=== PATIENT | male | born 1950 | race Caucasian/White ===

== ENCOUNTER 2021-01-20 10:20 | Outpatient (CLI) | payer OTHER, SELFPAY ==
--- NOTE | ~2021-01-20 | MR_ITS ---
EXAMINATION: MR shoulder RT wo con DATE: 01/20/2021 11:26 INDICATION: Right shoulder pain. Unspecified rotator cuff tear or rupture. TECHNIQUE: Magnetic resonance imaging (MRI) of the right shoulder was performed without intravenous c ontrast. Sequences included axial PD-weighted FS FSE, coronal oblique PD-weighted FS FSE and T2-weigh jeffrey FS FSE, and sagittal oblique T2-weighted FS FSE and T1-weighted FSE. COMPARISON: None. FINDINGS: Coracoacromial arch: The acromion undersurface is curved in morphology (type II). 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 There is moderate subacromial/subdeltoid bursitis. Rotator cuff: There is an articular sided partial-thickness tear of supraspinatus and anterior infraspinatus tendon s measuring 12 mm anterior to posterior by 15 mm proximal to distal by 50% tendon thickness. Teres mi nor tendon is normal. There is mild subscapularis tendinopathy. There is mild fatty atrophy of infras pinatus muscle belly. There is increased T2-weighted signal intensity in the infraspinatus muscle bel ly. Biceps tendon and glenoid labrum: Biceps tendon is in bicipital groove. There is a near complete tear of proximal biceps tendon. There is a tear of glenoid labrum anterior and posterior to the biceps anchor (SLAP tear). Fluid: There is a small glenohumeral joint effusion. Bones/cartilage: There is shallow partial-thickness cartilage loss of glenoid and humeral head. IMPRESSION: 1. Articular-sided, partial-thickness tear of supraspinatus and infraspinatus tendons. 2. Increased signal in infraspinatus muscle belly, consistent with subacute denervation versus mild s train. Mild fatty atrophy of infraspinatus muscle belly. 3. Mild glenohumeral joint chondrosis. SLAP tear. 4. Near-complete tear of proximal biceps tendon. 5. Severe acromioclavicular joint osteoarthritis. 6. Small glenohumeral joint effusion. 7. Moderate subacromial/subdeltoid bursitis. Reviewed, dictated and finalized at location B. ING SHOW PRODUCER IMPRESSION: 1. Articular-sided, partial-thickness tear of supraspinatus and infraspinatus t endons. 2. Increased signal in infraspinatus muscle belly, consistent with subacute den ervation versus mild strain. Mild fatty atrophy of infraspinatus muscle belly. 3. Mild glenohumeral joint chondrosis. SLAP tear. 4. Near-complete tear of proximal biceps tendon. 5. Severe acromioclavicular joint osteoarthritis. 6. Small glenohumeral joint effusion. 7. Moderate subacromial/subdeltoid bursitis.
== END 2021-01-20 10:21 | disposition home or self-care (01) ==
LOC: CHSIMG 10:22
PROVIDERS: PCP Family Medicine; Visit Provider Family Medicine
DX: M75.100 Unspecified rotator cuff tear or rupture of unspecified shoulder, not specified as traumatic (principal)
CPT/HCPCS: 73221

== ENCOUNTER 2024-02-13 00:36 | Emergency (ER) | payer OTHER, SELFPAY ==
[2024-02-13 00:42] LABS: Glucose Point of Care 108 mg/dl (65-105)
[2024-02-13 00:43] VITALS: BP 155/92; PULSE 106; RESP 16; TEMP 35.9; O2SAT 100
--- NOTE | 2024-02-13 01:01 | ED_ITS ---
HPI - Extremity Problem General Chief complaint: Extremity Problem,Nontraumatic Stated complaint: diabetic issues Time Seen by Provider: 02/13/24 00:54 Source: patient and EMS Mode of arrival: EMS Limitations: no limitations History of Present Illness HPI Narrative: this is a 73-year-old male that presents via EMS for left heel pain, patient with some past medical history of hypertension patient is concerned of diabetes but his blood sugars 108. There was no injuries has good peripheral pedal pulses. She has no fever chills has good range of motion in his foot and toes. MD Complaint: extremity pain Pain Consistency: constant Location: left Related Data Allergies Allergy/AdvReac Type Severity Reaction Status Date / Time No Known Allergies Allergy Verified 11/05/22 09:53 Review of Systems Review of Systems: All systems reviewed & are unremarkable except as noted in HPI and below PMFSH Past Medical History Medical History Hypertension Surgical History Surgical History History of hernia repair Social History Social History Smoking status: Never smoker Alcohol intake: former Alcohol use details: Quit August 2020 Exam Const: General: healthy appearing and no acute distress Nutritional Appea wisam: well nourished Orientation/consciousness: patient oriented x3 Limitations: no limitations Neck: Neck: normal visual inspection and no lymphadenopathy Resp: Effort & Inspection: normal respiratory effort Auscultation: clear to auscultation bilaterally Cardio: Rate: regular rate Rhythm: regular rhythm GI: GI Palp: Yes Soft to palpation Skin: Other: Callus formation on the heel of his left foot Neuro: General: patient oriented x3 Extrem: General: normal to inspection, no clubbing, cyanosis or edema and no pedal edema Course Course Emergency Course: after careful examination patient has a firm callus on the heel of his left foot Vital Signs Vital signs: Vital Signs Temperature 35.9 C L 02/13/24 00:43 Pulse Rate 106 H 02/13/24 00:43 Respiratory Rate 16 02/13/24 00:43 Blood Pressure 155/92 H 02/13/24 00:43 Pulse Oximetry 100 02/13/24 00:43 Oxygen Delivery Room Air 02/13/24 00:43 Temperature 35.9 C L 02/13/24 00:43 Pulse Rate 106 H 02/13/24 00:43 Respiratory Rate 16 02/13/24 00:43 Blood Pressure 155/92 H 02/13/24 00:43 Pulse Oximetry 100 02/13/24 00:43 Oxygen Delivery Room Air 02/13/24 00:43 MDM - Extremity (Nontraumatic) Lab Data Labs: Lab Results 02/13/24 Range/Units 00:39 POC Capillary Glucose 108 H (65-105) mg/dl Critical Care Time Critical Care Time Critical Care Time: No Discharge Plan Discharge Clinical Impression: Callus of foot Patient Disposition: Home, Self-Care Condition: Stable Instructions: Antibiotic Form, Arthralgia (ED) Additional Instructions: advised patient to follow-up with his primary care physician within the next 3 to 4 days for further evaluation treatment. Patient Language: Armenian Prescriptions: No Action lisinopril 20 mg tablet See Rx Instructions .ROUTE .COMPLEX Qty: 90 0RF Dose Instruction: TAKE 1 TABLET BY MOUTH EVERY DAY Rx Instructions: TAKE 1 TABLET BY MOUTH EVERY DAY Follow-up/Referrals: Ye Rondon DO [Primary Care Provider] - Time of Disposition: 01:06
== END 2024-02-13 01:20 | disposition home or self-care (01) ==
PROVIDERS: Emergency Provider Emergency Medicine; PCP Family Medicine
DX: L84 Corns and callosities (principal); R73.9 Hyperglycemia, unspecified; I10 Essential (primary) hypertension
CPT/HCPCS: 82948; 99282

== ENCOUNTER 2024-11-20 12:59 | Emergency (ER) | payer OTHER, SELFPAY ==
--- NOTE | ~2024-11-20 | CT_ITS ---
Oleg[facility] [employer] EXAMINATION: CT abdomen pelvis w con COMPARISON: None HISTORY: ABDOMINAL PAIN TECHNIQUE: Axial images were obtained through the abdomen, pelvis post administration of IV contrast. Oral contrast was also administered. Coronal reconstruction images were obtained from the axial views. CT scan performed using dose optimization techniques including the following automated exposure control; adjustment of mA and/or kV; use of iterative reconstruction technique. Automatic exposure control was used to reduce radiation dose. Permanent radiation dose record is archived to PACS. FINDINGS: CT abdomen: LUNG BASES: The lung bases are clear. The visualized portions of the heart and pericardium are unremarkable. LIVER: Mild hepatic steatosis. Portal vein patent. No intrahepatic biliary duct dilatation. SPLEEN: Punctate calcified splenic granulomas.. KIDNEYS: Right Kidney: Right kidney midpole 2 mm calculus. Right kidney midpole renal cyst 1 x 1 cm. Left Kidney: Left kidney midpole simple cyst 2 x 2 cm. ADRENAL GLANDS: Unremarkable. PANCREAS: Moderate pancreatic atrophy. GALLBLADDER/BILIARY: Unremarkable. No biliary dilatation. STOMACH AND ESOPHAGUS: Visualized stomach and esophagus within normal limits. BOWEL/MESENTERY: Moderate fecal content, no colitis or diverticulitis. Appendix normal. Mesentery normal. No dilated small bowel loops. ADENOPATHY/RETROPERITONEUM: No lymphadenopathy. AORTA/VASCULATURE: Normal caliber aorta. FREE FLUID OR FREE AIR: Minimal free fluid.. CT pelvis: SOLID ORGANS/REPRODUCTIVE: Prostate enlarged, correlate PSA. BLADDER: Within normal limits. OSSEOUS STRUCTURES: Moderate to severe degenerative changes in the lumbar spine. OVERLYING SOFT TISSUES: Small fat-containing left inguinal hernia. IMPRESSION: 1. No etiology identified to explain the patient's symptoms. Follow-up suggested if symptoms persist. Reviewed, dictated and finalized at location A. IMPRESSION: 1. No etiology identified to explain the patient's symptoms. Follow-up suggeste d if symptoms persist.
[2024-11-20 13:11] VITALS: BP 150/89; PULSE 112; RESP 18; TEMP 36.3; O2SAT 97
[2024-11-20 15:45] VITALS: BP 133/87; PULSE 110; RESP 18; O2SAT 98
[2024-11-20 16:26] VITALS: BP 153/99; PULSE 110; RESP 16; O2SAT 99
--- NOTE | 2024-11-20 16:34 | ED.ABDPAIN ---
HPI - Abdominal Pain General Chief Complaint: Abdominal Pain Stated Complaint: abd pain, intermittent Time Seen by Provider: 11/20/24 16:33 Source: patient Mode of arrival: ambulatory Limitations: no limitations History of Present Illness HPI narrative: 74 YEARS OLD WHITE MALE LIVES ALONE IN APARTMENT CAME TO THE ED BY PRIVATE CAR COMPLAINING OF INTERMITTENT ABDOMINAL PAIN FOR THE LAST 2 WEEKS COMES AT LEAST ONCE EVERY 3 DAYS LAST FOR ABOUT [address] THEN [address]. PATIENT NOTICED A BULGING LUMP AT THE LEFT LOWER ABDOMEN WHICH USUALLY WORSE WHEN HE HAVE PAIN AND SHRINK WITH THE PAIN IS GETTING BETTER. HE DENIES AGGRAVATING OR RELIEVING FACTORS, HE DENIES ANY FEVER, CHILLS, NAUSEA, VOMITING, DIARRHEA, CONSTIPATION OR URINARY SYMPTOMS. HISTORY OF HYPERTENSION. PATIENT REPORTS NO SMOKING DRINKING USING DRUGS Related Data Allergies Allergy/AdvReac Type Severity Reaction Status Date / Time No Known Allergies Allergy Verified 11/20/24 16:46 Review of Systems Review of Systems: All systems reviewed & are unremarkable except as noted in HPI and below PMFSH Past Medical History Medical History Hypertension Surgical History Surgical History History of hernia repair Social History Social History Smoking status: Never smoker Alcohol intake: former Alcohol use details: Quit August 2020 Exam Narrative: GENERAL APPEARANCE: WELL-DEVELOPED, WELL-NOURISHED SKIN: NORMAL COLOR HEAD: NORMOCEPHALIC, NONTRAUMATIC EYES: CLEAR CONJUNCTIVA ENT: OROPHARYNX NORMAL, EARS NORMAL, NOSE NORMAL NECK: SUPPLE, NONTENDER CHEST AND RESPIRATORY: AIRWAY PATENT, NO RESPIRATORY DISTRESS, NO ACCESSORY MUSCLE USE HEART: REGULAR RATE/RHYTHM ABDOMEN: SOFT, NONTENDER, NO ORGANOMEGALY, QUIET BOWEL SOUNDS, NO HERNIA VASCULAR: NORMAL PERIPHERAL PULSES, NORMAL CAPILLARY REFILL. MUSCULOSKELETAL: NORMAL RANGE OF MOTION, NONTENDER BACK NEUROLOGIC: ALERT AND ORIENTED ?3, KITCHEN UTILITY ASSOCIATE IS NORMAL TESTED, NO GROSS MOTOR DEFICIT Course Vital Signs Vital signs: Vital Signs Temperature 36.3 C L 11/20/24 13:11 Pulse Rate 112 H 11/20/24 13:11 Respiratory Rate 18 11/20/24 13:11 Blood Pressure 150/89 H 11/20/24 13:11 Pulse Oximetry 97 11/20/24 13:11 Oxygen Delivery Room Air 11/20/24 13:11 Temperature 36.3 C L 11/20/24 13:11 Pulse Rate 99 11/20/24 16:43 Respiratory Rate 20 11/20/24 16:43 Blood Pressure 139/99 H 11/20/24 16:43 Pulse Oximetry 98 11/20/24 16:43 Oxygen Delivery Room Air 11/20/24 16:43 MDM - Abdominal Pain MDM Narrative Medical decision making narrative: PATIENT CAME WITH INTERMITTENT ABDOMINAL PAIN VITAL SIGNS SHOWING 112 PULSE OTHERWISE WITHIN NORMAL LIMIT PHYSICAL EXAMINATION UNREMARKABLE DIFFERENTIAL DIAGNOSIS ANXIETY LIKE SYMPTOMS, INGUINAL HERNIA, CONSTIPATION, URINARY TRACT INFECTION, COLITIS, DIVERTICULITIS, PANCREATITIS BLOOD WORKUP TODAY INCLUDES CBC, CMP, LIPASE SHOWED NO SIGNIFICANT ABNORMALITY URINALYSIS SHOWED NO SIGNIFICANT ABNORMALITY CT ABDOMEN AND PELVIS WITH IV CONTRAST SHOWED NO ABNORMALITIES DIAGNOSIS ABDOMINAL PAIN OF UNKNOWN ETIOLOGY THE PT WAS DISCHARGED TO HOME.THE PT,S CONDITION UPON DISCHARGE WAS FAIR,EDUCATION WAS PROVIDED TO THE PT IN REFERENCE TO THE FINAL IMPRESSION,DISCHARGE STUDY RESULTS,TREATMENT,PROGNOSIS AND NEED FOR FOLLOW UP . Differential Diagnosis Differential diagnosis: Likely other ( ABOVE) Medical Records Attestation: I reviewed the patient's medical records. Lab Data Attestation: I reviewed the patient's lab results. 11/20/24 16:47 11/20/24 16:47 Labs: Lab Results 11/20/24 11/20/24 Range/Units 16:47 19:10 WBC 7.5 (4.5-10.0) K/mm3 RBC 4.86 (4.6-6.20) M/mm3 Hgb 14.6 (14.0-18.0) g/dL Hct 43.6 (42.0-52.0) % MCV 89.7 (80-100) fl MCH 30.0 (26-34) pg MCHC 33.5 (32-36) g/dl RDW 13.2 (11.5-14.5) % Plt Count 201 (150-375) k/mm3 MPV 10.4 (7.4-10.4) fl Immature Gran % (Auto) 0.4 (0-0.5) % Neut % (Auto) 78.1 H (45.5-73.1) % Lymph % (Auto) 14.5 L (18.3-44.2) % [place] % (Auto) 6.2 (2.6-8.5) % Eos % (Auto) 0.3 (0-4.4) % Baso % (Auto) 0.5 (0.2-1.2) % Lymph # (Auto) 1.08 (0.9-3.2) K/mm3 [place] # (Auto) 0.5 (0.1-0.6) K/mm3 Eos # (Auto) 0.0 (0-0.3) K/mm3 Baso # (Auto) 0.0 (0.0-0.1) K/mm3 Abs Immat Gran (auto) 0.03 (0.00-0.031) K/mm3 Absolute Neuts (auto) 5.8 (1.3-6.7) K/mm3 Absolute Nucleated RBC 0.000 (0.0-0.012) K/mm3 Nucleated RBC % 0.0 (0.0-0.2) % Sodium 137 (137-145) mmol/L Potassium 3.9 (3.4-5.0) mmol/L Chloride 105 (98-107) mmol/L Carbon Dioxide 24 (22-30) mmol/L Anion Gap 8 (4-12) mmol/L BUN 15 (9-20) mg/dL Creatinine 0.65 L (0.7-1.3) mg/dL Estim Creat Clear Calc 82 ml/min Estimated GFR > 60 (59 - ) Glucose 130 H (65-110) mg/dL Lactic Acid 1.0 (0.7-2.0) mmol/L Calcium 9.3 (8.4-10.2) mg/dL Total Bilirubin 0.7 (0.2-1.3) mg/dL AST 28 (17-59) U/L ALT 22 (6-50) U/L Alkaline Phosphatase 55 (38-126) U/L Total Protein 7.4 (6.3-8.2) g/dL Albumin 4.3 (3.5-5.1) g/dL Lipase 30 (23-300) U/L Urine Color Yellow (Yellow) Urine Appearance Clear (Clear) Urine pH 5.5 (5.0-9.0) Ur Specific [place] 1.022 (1.001-1.035) Urine Protein Negative (Negative) mg/dL Urine Glucose (UA) Negative (Negative) mg/dL Urine Ketones 2+ H (Negative) mg/dL Ur Blood (Man) Negative (Negative) Urine Nitrate Negative (Negative) Urine Bilirubin Negative (Negative) Urine Urobilinogen 0.2 (<2.0) mg/dL Leukocyte Esterase Rfl Negative (Negative) ALVINA/UL Imaging Data Radiologist's impression: ITS Impressions Abdomen/Pelvis CT 11/20/24 18:37 IMPRESSION: 1. No etiology identified to explain the patient's symptoms. Follow-up suggested if symptoms persist. Critical Care Time Critical Care Time Critical Care Time: No Discharge Plan Discharge Clinical Impression: Abdominal pain Patient Disposition: Home Condition: Stable Instructions: Abdominal Pain (ED) Additional Instructions: RETURN IF SYMPTOMS ARE WORSENING , CALL YOUR FAMILY PHYSICIAN FOR APPOINTMENT, TAKE TYLENOL NEEDED FOR ACHES AND PAIN, CONTINUE HOME MEDICATIONS. Patient Language: Icelandic Prescriptions: No Action telmisartan-amlodipine 40-5 mg tablet 1 tablet PO DAILY Qty: 90 0RF Follow-up/Referrals: Ye Rondon, [Primary Care Provider, Family Practice]
[2024-11-20 16:43] VITALS: BP 139/99; PULSE 99; RESP 20; O2SAT 98
[2024-11-20] MEDS: SODIUM CHLORIDE 0.9% IV 1,000 ML 999 ML IV CONT (16:52)
[2024-11-20 16:55] LABS: Hematocrit 43.6 % (42.0-52.0); Hemoglobin 14.6 g/dL (14.0-18.0); Immature Granulocyte Percent A 0.4 % (0-0.5); Lymphocytes Absolute Auto 1.08 K/mm3 (0.9-3.2); Mean Corpuscular HGB Conc 33.5 g/dl (32-36); Mean Corpuscular Hemoglobin 30.0 pg (26-34); Mean Corpuscular Volume 89.7 fl (80-100); Nucleated Red Blood Cells Absolute Auto 0.000 K/mm3 (0.0-0.012); Nucleated Red Blood Cells Perc 0.0 % (0.0-0.2); Platelet Count Result 201 k/mm3 (150-375); Red Blood Count 4.86 M/mm3 (4.6-6.20); White Blood Count 7.5 K/mm3 (4.5-10.0)
[2024-11-20 17:08] LABS: Alanine Aminotransferase 22 U/L (6-50); Albumin Level 4.3 g/dL (3.5-5.1); Alkaline Phosphatase 55 U/L (38-126); Anion Gap 8 mmol/L (4-12); Aspartate Amino Transferase 28 U/L (17-59); Bilirubin,Total 0.7 mg/dL (0.2-1.3); Blood Urea Nitrogen 15 mg/dL (9-20); Calcium 9.3 mg/dL (8.4-10.2); Carbon Dioxide 24 mmol/L (22-30); Chloride 105 mmol/L (98-107); Estimated CRCL calculation 82 ml/min; Estimated Glomerular Filt Rate > 60; Glucose 130 mg/dL (65-110); Lipase 30 U/L (23-300); Potassium 3.9 mmol/L (3.4-5.0); Sodium 137 mmol/L (137-145); Total Protein 7.4 g/dL (6.3-8.2)
[2024-11-20 19:16] LABS: Add Urine Microscopic? NO; Appearance Urine Clear (Clear); Glucose Urine UA Negative (Negative); Leukocyte Esterase Ur Negative LEU/UL (Negative); Nitrate Urine Negative (Negative); Specific Grav Ur 1.022 (1.001-1.035)
== END 2024-11-20 20:55 | disposition home or self-care (01) ==
PROVIDERS: Emergency Medicine; Emergency Provider Emergency Medicine; PCP Family Medicine
DX: R10.9 Unspecified abdominal pain (principal); I10 Essential (primary) hypertension
CPT/HCPCS: 36415; 74177; 80053; 81003; 83605; 83690; 85025; 96360; 99284; J7030; Q9967